=== PATIENT | female | born 1985 | race Caucasian/White ===

== ENCOUNTER → 2021-06-14 | Outpatient (CLI) | payer OTHER | LOC: KOH-I 06-01 14:00 | DX: R10.2 Pelvic and perineal pain (principal); Z87.42 Personal history of other diseases of the female genital tract | CPT/HCPCS: 76775 ==

== ENCOUNTER → 2021-08-01 | Outpatient (CLI) | payer OTHER ==
[~2021-08-01] MED LIST: IPRAT-ALBUT 0.5-3 ML INH; ORTHO TRI-CYCL1 EACH PO; PROAIR HFA8.5 GM INH; SUBOXONE 8 MG-1 EACH SL
[2021-08-01 12:53] LABS: RED BLOOD COUNT 4.44 M/UL (4.00-5.10); WHITE BLOOD COUNT 8.5 K/UL (4.5-11.0)
== END ==
LOC: OPSV2 11:52
PROVIDERS: Obstetrics & Gynecology
DX: Z01.812 Encounter for preprocedural laboratory examination (principal); Z88.0 Allergy status to penicillin
CPT/HCPCS: 81001; 85025

== ENCOUNTER 2021-08-03 10:08 | Day surgery (SDC) | payer OTHER ==
[~2021-08-03] VITALS: Ht 172.7 cm; Wt 104.3 kg
[2021-08-04 05:48] LABS: HEMOGLOBIN 11.4 gm/dl (12.3-15.3)
[2021-08-04] MEDS ORDERED: HYDROCODON-ACE1 EAC2 PO (08:44)
[2021-08-04] MEDS ORDERED: ZOFRAN 4 MG TAB4 MG PO (08:44)
[2021-08-04] MEDS ORDERED: ANAPROX DS550 MG PO (08:44)
== END 2021-08-04 11:23 | disposition home or self-care (01) ==
LOC: OR 10:08 → MED SURG 4 15:51 → OR 08-04 11:23
PROVIDERS: Obstetrics & Gynecology
DX: N87.9 Dysplasia of cervix uteri, unspecified (principal); N72 Inflammatory disease of cervix uteri; D25.1 Intramural leiomyoma of uterus; Z20.822 Contact with and (suspected) exposure to COVID-19; Z88.0 Allergy status to penicillin; Z80.41 Family history of malignant neoplasm of ovary; Z72.0 Tobacco use
CPT/HCPCS: 36415; 85014; 85018; C1769; J1100; J1170; J1580; J1885; J2001; J2250; J2270; J2405; J2550; J2704; J2710; J3010; J7120